=== PATIENT | female | born 1965 | race Caucasian/White ===

== ENCOUNTER 2016-12-21 18:22 | Emergency (ER) | payer MEDICARE, OTHER ==
[~2016-12-21 18:22] MED LIST: *UNABLE2; ALUMINUM HYDROXIDE PO; AMIT50 PO; AMOXIL875 MG PO; AMPI500 PO; APRES10B PO; AZO BLADDER CONTROL PO; BELSOMRA PO; BENADRYL 50 MG50 MG PO; BIST PO; BUTRANS1 EAC1 TOP; BUTRANS1 EAC2 TOP; C2; C2 PO; C25 PO; C5 PO; CEFACLOR500 MG PO; CELEXA20 PO; CELEXA40 MG PO; CLOTRIMAZOLE1 % TOP; COLACEUDL PO; COUMADIN10 MG PO; COUMADIN4 MG PO; COUMADIN6 MG PO; COUMADIN7.5 MG PO; COZ50 PO; CRANBERRY300 MG OR; CYMBALTA30 PO; CYMBALTA60 PO; ENDOCET1 TA3 PO; EPSOM SALTS PO; FESO4 PO; FLEX PO; FLEXERIL5 MG PO; ISORDIL10 PO; JANTOVEN1 MG PO; JANTOVEN4 MG PO; JANTOVEN5 MG PO; KLONO1 PO; KLOR-CON M2020 MEQ PO; L40 PO; LEVAQUIN750 MG PO; LIDO5OINT TOP; LIDOVISCUD TOP; LINZESS 145 M145 MCG PO; LIPITOR20 PO; LORT7 PO; LOSARTAN PO; LOTRISONE EX; LOVENOX150 SC; LYRICA150 MG PO; LYRICA200 MG PO; LYRICA50 PO; MAGNESIUM HYDROXIDE PO; MOMUD PO; MSCONTIN PO; MULTIPLE VIT PO; MULTIVIT/MIN PO; NAFCILLIN10 GM IV; NEUR800 PO; NORV10 PO; OTC BENADRYL PO; OTC LAXATIVE PO; OXYCOD PO; OXYCON40 PO; OXYCON80 PO; OXYIR5 MG PO; PERCOCET1 TA2 PO; PERCOCET1 TA3 PO; PERCOCET1 TA4 PO; PROTONIX PO; PROVENT20 INH; REM15 PO; REQUIP25 PO; ROPINIROLE PO; SANTYL250 MG/GM EX; SANTYL250 MG/GM TOP; SEPTRA DS1 TAB PO; SIMETHICONE PO; SPIRO25 PO; SYN.025B PO; SYN.05 PO; TOPXL100 PO; TYLENOL 8 HR650 MG PO; VALIUM10 MG PO; VALTREX1 GM PO; VALTREX5 PO; VITAMIN B-121000 MC1 SL; VOLT50 PO; X5 PO; ZANAFLEX 4 MG TA4 MG PO; ZOSYN375 IV; [UNRECOGNIZED DRUG - OTHER]
[2016-12-21 18:50] LABS: BASOPHILS 0.1 %; BASOPHILS ABSOLUTE 0.01 10/3/uL (0.0-0.16); EOSINOPHILS 0.3 %; EOSINOPHILS ABSOLUTE 0.02 10/3/uL (0.0-0.53); HEMOGLOBIN 13.7 g/dL (12.0-16.0); IMMATURE GRANULOCYTES 0.3 %; IMMATURE GRANULOCYTES ABSOLUTE 0.02 10/3/uL (0.0-0.11); LYMPHOCYTES 18.2 %; MEAN CORPUS HGB CONC 34.5 g/dL (32.0-36.0); MEAN CORPUSCULAR HEMOGLOB 29.9 pg (26.0-34.0); MEAN PLATELET VOLUME 9.8 fL (9.2-13.0); MONOCYTES 7.5 %; MONOCYTES ABSOLUTE 0.58 10/3/uL (0.21-1.20); NEUTROPHILS 73.6 %; NEUTROPHILS ABSOLUTE 5.66 10/3/uL (2.02-8.40); RBC DISTRIBUTION WIDTH 16.3 % (12.0-16.0)
[2016-12-21 18:51] LABS: ER CBC TAT 0 Hrs 07 Mins; HEMATOCRIT 39.7 % (36.0-48.0); MANUAL DIFF NO %; MEAN CORPUSCULAR VOLUME 86.7 fL (80-100); PLATELET COUNT 367 10/3/uL (150-400); RED CELL COUNT 4.58 10/6/uL (4.0-5.6); WHITE BLOOD CELLS 7.7 10/3/uL (4.5-10.5)
[2016-12-21 19:11] LABS: ASCORBIC ACID (UR NOT ORDER) NEG (NEG); BILIRUBIN, URINE NEGATIVE (NEG); ER URINALYSIS TAT 0 Hrs 27 Mins; KETONE, URINE 20 MG/DL (NEG); LEUKOCYTE ESTERASE(NOT OR LARGE (NEG); NITRITE (URINE) NEG (NEG)
[2016-12-21 19:12] LABS: A/G RATIO 0.5 (0.7-1.9); ALBUMIN 2.8 G/DL (3.5-5.0); ALKALINE PHOSPHATASE 119 U/L (45-117); BUN (BLOOD UREA NITROGEN) 13 MG/DL (6-23); CHLORIDE, SERUM 98 MMOL/L (96-112); CO2 (CARBON DIOXIDE) 25 MMOL/L (24-34); CREATININE 0.49 MG/DL (0.55-1.02); GFR AFRICAN AMERICAN 130 ML/MIN (>=60); GFR NON AFRICAN AMERICAN 112 ML/MIN (>=60); GLUCOSE, SERUM 100 MG/DL (60-99); POTASSIUM, SERUM 2.7 MMOL/L (3.5-5.3); SGOT(AST) 17 U/L (5-40); SGPT(ALT) 16 U/L (5-65); SODIUM, SERUM 132 MMOL/L (135-148); TOTAL BILIRUBIN 0.4 MG/DL (0-1.2)
[2016-12-21 19:13] LABS: WBC (NOT ORDERED) (RFLEX) > 182 (0-5)
[2016-12-21 19:13] LABS: CALCIUM, SERUM 9.3 MG/DL (8.5-10.4); TOTAL PROTEIN 8.8 G/DL (6.0-8.5)
[2016-12-21 19:15] LABS: LACTATE 1.1 MMOL/L (0.3-2.4)
== END 2016-12-21 22:37 | disposition home or self-care (01) ==
LOC: ER 18:22
PROVIDERS: Nurse Practitioner Family
DX: N39.0 Urinary tract infection, site not specified (principal); E87.6 Hypokalemia; I25.2 Old myocardial infarction; D64.9 Anemia, unspecified; F17.210 Nicotine dependence, cigarettes, uncomplicated; I73.9 Peripheral vascular disease, unspecified; I25.10 Atherosclerotic heart disease of native coronary artery without angina pectoris; Z93.3 Colostomy status; Z89.612 Acquired absence of left leg above knee; Z86.718 Personal history of other venous thrombosis and embolism; Z88.5 Allergy status to narcotic agent; Z88.1 Allergy status to other antibiotic agents; Z88.8 Allergy status to other drugs, medicaments and biological substances; Z79.01 Long term (current) use of anticoagulants; Z79.899 Other long term (current) drug therapy
CPT/HCPCS: 74176; 80053; 81001; 83605; 83690; 85025; 87040; 87077; 87086; 87186; 87493; 87493-59; 96374; 96375; 99284; A9270-GY; J1170; J2405